=== PATIENT | female | born 1995 | race Caucasian/White ===

== ENCOUNTER 2020-08-28 15:18 | Outpatient (CLI) | payer OTHER ==
[~2020-08-28 15:18] MED LIST: COLACE 100MG C100 MG PO; FIORINAL 50-321 EACH PO; IBUPROFEN600 MG PO; KEFLEX CAP 500500 MG PO; LODINE CAP 300300 MG PO; LORTAB 5-325 M1 EACH PO; NORCO 5-325 TA1 EACH PO; OMNICEF 300 MG300 MG PO; PRENATAL VITAM1 EAC8 PO
== END 2020-08-28 17:09 | disposition home or self-care (01) ==
LOC: GENOP 15:18
DX: O99.891 Other specified diseases and conditions complicating pregnancy (principal); R10.9 Unspecified abdominal pain; M54.9 Dorsalgia, unspecified; Z3A.35 35 weeks gestation of pregnancy
CPT/HCPCS: 83518; G0463

== ENCOUNTER 2020-09-17 08:22 | Inpatient (IN) | payer OTHER ==
[~2020-09-17] VITALS: Ht 152.4 cm; Wt 61.7 kg
[2020-09-17 10:12] LABS: HEMOGLOBIN 12.1 gm/dl (12.3-15.3); RED BLOOD COUNT 3.74 M/UL (4.00-5.10)
[2020-09-17] MEDS ORDERED: PRENATAL TABLE1 EAC1 PO (12:48)
[2020-09-17] MEDS ORDERED: AMOX TR-K CLV1 EAC4 PO (19:24)
[2020-09-17] MEDS ORDERED: HYDROCODON-ACE1 EAC4 PO (19:24)
[2020-09-17] MEDS ORDERED: DOCUSATE SODIU100 MG PO (19:24)
[2020-09-17] MEDS ORDERED: IBUPROFEN600 MG PO (19:24)
[2020-09-17 21:49] LABS: HEMOGLOBIN 12.9 gm/dl (12.3-15.3); RED BLOOD COUNT 3.96 M/UL (4.00-5.10)
[2020-09-17 22:05] LABS: WHITE BLOOD COUNT 23.6 K/UL (4.5-11.0)
[2020-09-18 06:56] LABS: HEMOGLOBIN 9.9 gm/dl (12.3-15.3)
== END 2020-09-19 14:44 | disposition home or self-care (01) | DRG 787 ==
LOC: GENOP 08:22 → OB 12:12
PROVIDERS: ADMIT Obstetrics & Gynecology
PROC: 4A1HX4Z Monitoring of Products of Conception, Cardiac Electrical Activity, External Approach (ICD-10-PCS; 2020-09-17)
PROC: 10D00Z1 Extraction of Products of Conception, Low, Open Approach (ICD-10-PCS; principal; 2020-09-17 16:57)
DX: O34.218 Maternal care for other type scar from previous cesarean delivery (principal); N39.0 Urinary tract infection, site not specified; N85.8 Other specified noninflammatory disorders of uterus; Z20.822 Contact with and (suspected) exposure to COVID-19; R55 Syncope and collapse; N73.6 Female pelvic peritoneal adhesions (postinfective); Z3A.38 38 weeks gestation of pregnancy; Z37.0 Single live birth
CPT/HCPCS: 36415; 81001; 82800; 85014; 85018; 85025; 85384; 85610; 85730; 86850; 86900; 86901; 86920; 90471; 90715; C9113; J0690; J0696; J2210; J2250; J2274; J2405; J2590; J2704; J3010; J3430; J7120; U0002

== ENCOUNTER 2020-10-07 14:07 | Emergency (ER) | payer OTHER ==
[~2020-10-07 14:07] MED LIST changes: +AMOX TR-K CLV1 EAC4 PO; +DOCUSATE SODIU100 MG PO; +HYDROCODON-ACE1 EAC4 PO; +PRENATAL TABLE1 EAC1 PO
[2020-10-07 14:52] LABS: HEMOGLOBIN 12.4 gm/dl (12.3-15.3); RED BLOOD COUNT 3.95 M/UL (4.00-5.10); WHITE BLOOD COUNT 11.2 K/UL (4.5-11.0)
[2020-10-07 15:15] LABS: BUN/CREATININE RATIO 8 (0-10)
[2020-10-07] MEDS ORDERED: AUGMENTIN 875-1 EACH PO (16:56)
[2020-10-08] MEDS ORDERED: BACTRIM DS TAB1 EACH PO (20:47)
== END 2020-10-07 17:13 | disposition home or self-care (01) ==
LOC: ER1 14:07
PROVIDERS: Physician Assistant
DX: N39.0 Urinary tract infection, site not specified (principal)
CPT/HCPCS: 36415; 80053; 81001; 84703; 85025; 96374; 96375; 99284; J2270; J2405; Q9967

== ENCOUNTER 2020-10-08 16:25 | Emergency (ER) | payer OTHER ==
[~2020-10-08 16:25] MED LIST changes: +AUGMENTIN 875-1 EACH PO
[2020-10-08 19:44] LABS: HEMOGLOBIN 11.9 gm/dl (12.3-15.3); RED BLOOD COUNT 3.81 M/UL (4.00-5.10)
[2020-10-08 19:46] LABS: WHITE BLOOD COUNT 14.4 K/UL (4.5-11.0)
[2020-10-08 19:59] LABS: BUN/CREATININE RATIO 9 (0-10)
[2020-10-08] MEDS ORDERED: BACTRIM DS TAB1 EACH PO (20:47)
== END 2020-10-08 21:20 | disposition home or self-care (01) ==
LOC: ER1 16:25
PROVIDERS: Family Medicine
DX: G89.18 Other acute postprocedural pain (principal); R10.9 Unspecified abdominal pain; R50.9 Fever, unspecified; R11.0 Nausea; Z87.440 Personal history of urinary (tract) infections; Z79.899 Other long term (current) drug therapy
CPT/HCPCS: 36415; 80053; 81001; 83690; 84703; 85025; 99284

== ENCOUNTER 2021-02-07 13:15 | Emergency (ER) | payer OTHER ==
[~2021-02-07 13:15] MED LIST changes: +BACTRIM DS TAB1 EACH PO
== END 2021-02-07 14:40 | disposition home or self-care (01) ==
LOC: ER1 13:15
DX: R10.2 Pelvic and perineal pain (principal)
CPT/HCPCS: 99283